=== PATIENT | female | born 1985 | race Caucasian/White ===

== ENCOUNTER 2020-02-20 11:09 | Emergency (ER) | payer OTHER ==
--- NOTE | 2020-02-20 12:38 | ED Physician Documentation ---
History of Present Illness - Stated complaint Stated Complaint: FEMALE /EAR RASH - Chief complaint Chief Complaint: General - History obtained from History obtained from: Patient (The pt is Out visiting her , she is from [place]. She has been here since last Wednesday, when she developed vaginal yeast infection. She called her PCP who prescribed her Diflucan p.o., she took 1 pill symptoms resolved. 3 days later her symptoms returned along with a rash and both her ears and the nape of her neck. Patient states she has had no change in the lotions creams or ointments or conditioner hair products. She has tried some basic non-perfumed ointment/facial cream to the rash which has not improved. Patient denies any fevers chills nausea vomiting diarrhea sore throat she does have 2 pills of Diflucan left no other concerns today) Review of Systems Constitutional: denies: Fever, Chills, Fatigue, Sweats Ears: denies: Loss of hearing, Ear pain, Drainage/discharge Nose: denies: Rhinorrhea / runny nose, Congestion, Sinus pressure / pain Throat: denies: Oral lesions / sores, Sore throat, Swollen tonsils Respiratory: denies: Dyspnea, Cough, Wheezing GI: denies: Nausea, Vomiting, Diarrhea : reports: Other (vaginal itching). denies: Dysuria, Frequency, Discharge Skin: reports: Rash. denies: Bite / sting Musculoskeletal: denies: Joint swelling Neurologic: denies: Headache PD PAST MEDICAL HISTORY - Past Medical History Past Medical History: No - Past Surgical History Past Surgical History: No - Present Medications Home Medications: Ambulatory Orders Medication Instructions Recorded Confirmed No Known Home Medications 02/20/20 02/20/20 - Allergies Allergies/Adverse Reactions: Allergies Allergy/AdvReac Type Severity Reaction Status Date / Time No Known Drug Allergies Allergy Verified 02/20/20 11:29 - Social History Does the pt smoke?: No Smoking Status: Never smoker Does the pt drink ETOH?: No Does the pt have substance abuse?: No - Immunizations Immunizations are current?: Yes PD ED PE NORMAL - General General: Alert and oriented X 3 - HEENT HEENT: Atraumatic, PERRL, EOMI, Ears normal, Pharynx benign - Neck Neck: No adenopathy - Cardiac Cardiac: RRR, No murmur - Respiratory Respiratory: No respiratory distress, Clear bilaterally - Female Female : Pt declined - Derm Derm: Other (Erythematous, angry appearing, pustular rash behind bilateral ears, right greater than left. Very faint pustules nonerythematous across the upper chest.) - Neuro Neuro: Alert and oriented X 3 - Psych Psych: Normal mood, Normal affect PD ED PE EXPANDED - Derm Derm: Rash (Behind bilateral ears right greater than left, to the nape of the neck, upper chest.), Papules Results - Vitals Vitals: Vital Signs - 24 hr 02/20/20 11:16 Temperature 37 C Heart Rate 88 Respiratory 20 Rate Blood Pressure 110/74 O2 Saturation 98 Oxygen O2 Source Room air PD MEDICAL DECISION MAKING - ED course Complexity details: re-evaluated patient, d/w patient, d/w credit consultant (Dr. Montes Evaluated the patient as well.) Departure - Departure Disposition: 01 Home, Self Care Clinical Impression: Contact dermatitis Qualifiers: Contact dermatitis type: unspecified Contact dermatitis trigger: unspecified trigger Qualified Code(s): L25.9 - Unspecified contact dermatitis, unspecified cause Condition: Good Instructions: ED Dermatitis Contact Ch Comments: Most likely a contact dermatitis behind her ears on her chest. Get some wwzk-lef-kdouhli cortisone cream, Hydrocortisone 1.0% and apply as directed to the affected area two to four times a day. Also fill your Diflucan prescription remaining 2 pills, take 1 pill daily received a prescription, then take a second pill 3 days later. Follow-up with your PCP no more than 1 week for your rash, or sooner if it fails to improve.
[2020-02-20 12:54] VITALS: BP 109/80
== END 2020-02-20 12:53 | disposition home or self-care (01) ==
LOC: ED 11:09
DX: L25.9 Unspecified contact dermatitis, unspecified cause (principal)
CPT/HCPCS: 99281; 99283

== ENCOUNTER 2020-04-24 15:35 | Outpatient (CLI) | payer OTHER | END 2020-04-24 15:36 | disposition EMS.NT | LOC: EMS 15:35 | PROVIDERS: ATTEND Surgery | DX: R07.89 Other chest pain (principal); V49.40XA Driver injured in collision with unspecified motor vehicles in traffic accident, initial encounter; Y92.414 Local residential or business street as the place of occurrence of the external cause ==

== ENCOUNTER 2020-04-24 17:56 | Emergency (ER) | payer OTHER ==
[2020-04-24] MEDS ORDERED: ONDANSETRON ODT 4 MG TABLET TL STA (18:27)
[2020-04-24] MEDS ORDERED: HYDROcod/ACETAM 5/325 MG TABLET PO STA (18:27)
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
--- NOTE | 2020-04-24 19:06 | CT Report ---
PROCEDURE: HEAD WO INDICATIONS: head injury. TECHNIQUE: Noncontrast 4.5 mm thick angled axial sections acquired from the foramen magnum to the vertex. For r adiation dose reduction, the following was used: automated exposure control, adjustment of mA and/or kV according to patient size. COMPARISON: None. FINDINGS: Image quality: Excellent. CSF spaces: Basal cisterns are patent. No extra-axial fluid collections. Ventricles are normal in size and shape. Brain: No midline shift. No intracranial masses or hemorrhage. Doherty-white matter interface is norm al. Skull and face: Calvarium and visualized facial bones are intact, without suspicious lesions. Sinuses: Visualized sinuses and mastoids are clear. IMPRESSION: No acute intracranial disease process. Reviewed by: Cherise Galeano MD, PhD on 04/24/2020 7:05 PM PDT Approved by: Cherise Galeano MD, PhD on 04/24/2020 7:05 PM PDT Station ID: [id number]
[2020-04-24 19:19] VITALS: BP 130/80
== END 2020-04-24 19:19 | disposition home or self-care (01) ==
LOC: ED 17:56
DX: S06.0X0A Concussion without loss of consciousness, initial encounter (principal); M25.512 Pain in left shoulder; V43.52XA Car driver injured in collision with other type car in traffic accident, initial encounter; W22.11XA Striking against or struck by driver side automobile airbag, initial encounter; Y92.410 Unspecified street and highway as the place of occurrence of the external cause
CPT/HCPCS: 70450; 99284; A9270; Q0162

== ENCOUNTER 2020-04-29 19:24 | Emergency (ER) | payer OTHER ==
[2020-04-29] MEDS ORDERED: INDOMETHACIN 25 MG CAPSULE PO STA (19:47)
[2020-04-29] MEDS ORDERED: MECLIZINE 12.5 MG TABLET PO STA (19:48)
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
--- NOTE | 2020-04-29 20:19 | CT Report ---
PROCEDURE: HEAD WO INDICATIONS: post concussive sx TECHNIQUE: Noncontrast 4.5 mm thick angled axial sections acquired from the foramen magnum to the vertex. For r adiation dose reduction, the following was used: automated exposure control, adjustment of mA and/or kV according to patient size. COMPARISON: CT head 04/24/2020. FINDINGS: Image quality: Excellent. CSF spaces: Basal cisterns are patent. No extra-axial fluid collections. Ventricles are normal in size and shape. Brain: No midline shift. No intracranial masses or hemorrhage. Doherty-white matter interface is norm al. Skull and face: Calvarium and visualized facial bones are intact, without suspicious lesions. Sinuses: Visualized sinuses and mastoids are clear. IMPRESSION: 1. No acute intracranial process. Reviewed by: Joyce Bar MD on 04/29/2020 8:17 PM PDT Approved by: Joyce Bar MD on 04/29/2020 8:17 PM PDT Station ID: [id number]
[2020-04-29] MEDS ORDERED: ONDANSETRON ODT 4 MG TABLET TL STA (20:40)
[2020-04-29 20:50] VITALS: BP 112/65
== END 2020-04-29 20:51 | disposition home or self-care (01) ==
LOC: ED 19:24
DX: G44.309 Post-traumatic headache, unspecified, not intractable (principal); F07.81 Postconcussional syndrome
CPT/HCPCS: 70450; 99284; A9270; Q0162

== ENCOUNTER 2020-08-02 06:49 | Emergency (ER) | payer OTHER ==
[2020-08-02 08:06] LABS: BASOPHILS # (AUTO) 0.1 10^3/uL (0.0-0.1); BASOPHILS % (AUTO) 0.9 %; EOSINOPHILS # (AUTO) 0.2 10^3/uL (0.0-0.7); EOSINOPHILS % (AUTO) 1.9 %; HGB - HEMOGLOBIN 14.1 g/dL (12.0-16.0); LYMPHOCYTES # (AUTO) 2.5 10^3/uL (1.5-3.5); LYMPHOCYTES % (AUTO) 26.1 %; MEAN CORPUSCULAR HEMOGLOBIN 29.7 pg (27.0-31.0); MEAN CORPUSCULAR HGB CONC 33.3 g/dL (32.0-36.0); MEAN CORPUSCULAR VOLUME 89.5 fL (81.0-99.0); MEAN PLATELET VOLUME 11.4 fL (7.9-10.8); MONOCYTES # (AUTO) 0.7 10^3/uL (0.0-1.0); MONOCYTES % (AUTO) 7.2 %; NEUTROPHILS % (AUTO) 63.5 %; PLT - PLATELET COUNT 205 10^3/uL (130-450); RED BLOOD COUNT 4.74 10^6/uL (4.20-5.40); RED CELL DISTRIBUTION WIDTH 13.1 % (12.0-15.0); WHITE BLOOD COUNT 9.5 x10^3/uL (4.8-10.8)
[2020-08-02 08:15] LABS: BILIRUBIN,URINE NEGATIVE (NEGATIVE); GLUCOSE, URINE (UA) NEGATIVE (NEGATIVE); KETONES,URINE (UA) NEGATIVE (NEGATIVE); LEUKOCYTE ESTERASE, URINE NEGATIVE (NEGATIVE); NITRITE,URINE NEGATIVE (NEGATIVE); OCCULT BLOOD,URINE MODERATE (NEGATIVE); PH,URINE 6.5 PH (5.0-7.5); PROTEIN,URINE NEGATIVE (NEGATIVE); UROBILINOGEN,URINE 0.2 (NORMAL) E.U./dL (NORMAL)
[2020-08-02 08:18] LABS: CLARITY,URINE CLEAR (CLEAR); HCG UR QUAL NEGATIVE
[2020-08-02 08:18] LABS: ALBUMIN 4.3 g/dL (3.2-5.5); ALBUMIN/GLOBULIN RATIO 1.3 (1.0-2.2); BILIRUBIN,TOTAL 0.7 mg/dL (0.2-1.0); CREATININE 0.8 mg/dL (0.4-1.0); TOTAL PROTEIN 7.7 g/dL (6.7-8.2)
[2020-08-02 08:27] LABS: RBC,URINE 0-5 /HPF (0-5); SQUAMOUS EPITHELIAL CELL,UR RARE Squamous (<= Few)
[2020-08-02 08:28] LABS: BACTERIA,URINE Few /HPF (None Seen)
[2020-08-02 08:40] LABS: PLATELET ESTIMATE, MANUAL NORMAL (130-450,000) (NORMAL); PLATELET MORPHOLOGY NORMAL APPEARANCE (NORMAL); RBC MORPHOLOGY (MULTIPLE) 1+ ANISOCYTOSIS (NORMAL)
[2020-08-02] MEDS ORDERED: HYDROmorphone 1 MG/ML CARPUJECT IM STA (09:23)
[2020-08-02] MEDS ORDERED: ONDANSETRON ODT 4 MG TABLET TL STA (09:23)
--- NOTE | 2020-08-02 10:49 | Ultrasound Report ---
PROCEDURE: Pelvic w/Transvaginal INDICATIONS: LLQ PAIN, H/O OV CYSTS TECHNIQUE: Real-time scanning was performed of the pelvic organs, with image documentation. Additional endovagi nal scanning was necessary due to incomplete visualization of the adnexal and endometrial structures by transabdominal scanning. COMPARISON: Previous ultrasound from outside hospital not available for review at time of this exam. FINDINGS: Transabdominal scanning: Limited scanning through the kidneys shows no hydronephrosis. No pathologi c free abdominal or pelvic fluid. Endovaginal scanning: Uterus: Uterus is surgically absent. Ovaries: Status post right oophorectomy. The left ovary measures 4.2 x 2.1 x 3.4 cm. Multiple follic les are seen on the left numbering less than 12. There is a likely involuting/collapsing cyst or foll icle measuring 1.8 cm in maximum dimension. No suspicious solid ovarian/adnexal mass lesions. IMPRESSION: Status post hysterectomy and right oophorectomy. Otherwise, no acute sonographic abnormalities identi fied in the pelvis. Unremarkable sonographic appearance of the left ovary. Preliminary findings were reported to Dr. Montes of the emergency department at 1025 hrs by the son jose. Reviewed by: Pranay Fletcher MD on 08/02/2020 10:48 AM PDT Approved by: Pranay Fletcher MD on 08/02/2020 10:48 AM PDT Station ID: [id number]
[2020-08-02 11:46] VITALS: BP 115/79
--- NOTE | 2020-08-02 11:54 | ED Physician Documentation ---
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 - Past Surgical History Past Surgical History: No /SMOKING PIPE REPAIRER: Other - Present Medications Home Medications: Ambulatory Orders Medication Instructions Recorded Confirmed Docusate Sodium 250Mg Capsule 250 mg PO BID #60 capsule 04/24/20 [Colace 250Mg Capsule] Hydrocodone/Acetaminophen 1 - 2 each PO Q6H PRN #14 tablet 04/24/20 [Hydrocodon-Acetaminophen 5-325] Ondansetron Odt [Zofran] 4 mg TL Q6H PRN #10 tablet 04/24/20 Indomethacin [Indocin] 25 mg PO BIDWM PRN #20 capsule 04/29/20 Meclizine HCl 25 mg PO Q6H PRN #15 tab.chew 04/29/20 Ondansetron Odt [Zofran] 4 mg TL Q6H PRN #10 tablet 04/29/20 Hydrocodone/Acetaminophen 1 each PO Q6HR PRN #6 tablet 08/02/20 [Hydrocodon-Acetaminoph 7.5-325] Ondansetron Odt [Zofran] 4 mg TL Q6H PRN #10 tablet 08/02/20 - Allergies Allergies/Adverse Reactions: Allergies Allergy/AdvReac Type Severity Reaction Status Date / Time No Known Drug Allergies Allergy Verified 08/02/20 06:58 - Social History Does the pt smoke?: No Smoking Status: Never smoker Does the pt drink ETOH?: No Does the pt have substance abuse?: No Substance Use and Type: Marijuana - Immunizations Immunizations are current?: Yes PD ED PE NORMAL - Vitals Vital signs reviewed: Yes (Hypertensive mild) - General General: Alert and oriented X 3, No acute distress, Well developed/nourished - HEENT HEENT: Atraumatic, PERRL, EOMI - Cardiac Cardiac: RRR, No murmur - Respiratory Respiratory: No respiratory distress, Clear bilaterally - Abdomen Abdomen: Normal bowel sounds, Soft, Non distended, No organomegaly, Other (Mild left lower quadrant tenderness.) - Back Back: No CVA TTP, No spinal TTP - Derm Derm: Normal color, Warm and dry, No rash - Extremities Extremities: No deformity, No edema - Neuro Neuro: Alert and oriented X 3, seam stay stitcher 2-12 intact, No motor deficit, No sensory deficit, Normal speech Eye Opening: Spontaneous Motor: Obeys Commands Verbal: Oriented GCS Score: 15 - Psych Psych: Normal mood, Normal affect Results - Vitals Vitals: Vital Signs - 24 hr 08/02/20 08/02/20 08/02/20 06:56 06:58 09:12 Temperature 36.7 C 36.9 C Heart Rate 88 85 96 Respiratory 17 16 16 Rate Blood Pressure 126/83 H 132/65 H 145/92 H O2 Saturation 98 98 100 08/02/20 08/02/20 10:36 11:44 Temperature 36.7 C Heart Rate 85 62 Respiratory 16 16 Rate Blood Pressure 127/71 115/79 O2 Saturation 99 99 Oxygen O2 Source Room air - Labs Labs: Laboratory Tests 08/02/20 08/02/20 08/02/20 07:59 07:59 08:10 WBC 9.5 RBC 4.74 Hgb 14.1 Hct 42.4 MCV 89.5 MCH 29.7 MCHC 33.3 RDW 13.1 Plt Count 205 MPV 11.4 H Neut # (Auto) 6.0 Lymph # (Auto) 2.5 Pine # (Auto) 0.7 Eos # (Auto) 0.2 Baso # (Auto) 0.1 Absolute Nucleated RBC 0.00 Nucleated RBC % 0.0 Manual Slide Review Indicated WBC Morphology NORMAL APPEARANCE Platelet Estimate NORMAL (130-450,000) Platelet Morphology NORMAL APPEARANCE RBC Morph Micro Appear 1+ ANISOCYTOSIS Sodium 140 Potassium 3.8 Chloride 107 Carbon Dioxide 24 Anion Gap 9.0 BUN 10 Creatinine 0.8 Estimated GFR (MDRD) 83 L Glucose 130 H Calcium 9.0 Total Bilirubin 0.7 AST 16 ALT 15 Alkaline Phosphatase 50 Total Protein 7.7 Albumin 4.3 Globulin 3.4 Albumin/Globulin Ratio 1.3 Lipase 28 Urine Color STRAW Urine Clarity CLEAR Urine pH 6.5 Ur Specific [place] <=1.005 Urine Protein NEGATIVE Urine Glucose (UA) NEGATIVE Urine Ketones NEGATIVE Urine Occult Blood MODERATE H Urine Nitrite NEGATIVE Urine Bilirubin NEGATIVE Urine Urobilinogen 0.2 (NORMAL) Ur Leukocyte Esterase NEGATIVE Urine RBC 0-5 Urine WBC 0-3 Ur Squamous Epith Cells RARE Squamous Urine Bacteria Few Ur Microscopic Review INDICATED Urine Culture Comments NOT INDICATED Urine HCG, Qual NEGATIVE - Rads (name of study) Pelvic ultrasound Radiology: Prelim report reviewed (Impression: Status post hysterectomy and right oophorectomy. Otherwise, no acute sonographic abnormalities identified in the pelvis. Unremarkable sonographic appearance of the left ovary.), EMP read indepedently, See rad report Procedures - Bedside sono Bedside sono by EMP: With use of bedside ultrasound the left kidney is imaged it is sonographically nontender and there is no evidence of hydronephrosis. PD MEDICAL DECISION MAKING - ED course Complexity details: reviewed results, re-evaluated patient, considered differential, d/w patient, d/w family ED course: 35-year-old female with a prior history of ovarian cyst is administered Dilaudid IM at her request and she does not appear to have any significant abnormality to the ovary on the left it does appear to be an involuting cyst and the expectation is rapid resolution of symptoms. Departure - Departure Disposition: 01 Home, Self Care Clinical Impression: Cyst of ovary Qualifiers: Laterality: left Qualified Code(s): N83.202 - Unspecified ovarian cyst, left side Condition: Stable Instructions: ED Cyst Ovarian Follow-Up: [facility] [Provider Group] Prescriptions: Hydrocodone/Acetaminophen [Hydrocodon-Acetaminoph 7.5-325] 1 each PO Q6HR PRN #6 tablet PRN Reason: Pain Ondansetron Odt [Zofran] 4 mg TL Q6H PRN #10 tablet PRN Reason: Nausea / Vomiting
== END 2020-08-02 12:07 | disposition home or self-care (01) ==
LOC: ED 06:49
DX: N83.202 Unspecified ovarian cyst, left side (principal)
CPT/HCPCS: 36415; 76830; 76856; 80053; 81001; 81025; 83690; 85025; 96372; 99284; J1170; Q0162; 81003; 87086

== ENCOUNTER 2020-08-26 10:45 | Outpatient (CLI) | payer OTHER ==
[2020-08-27 21:26] LABS: CANDIDA GROUP DNA NEGATIVE (NEGATIVE); CANDIDA KRUSEI DNA NEGATIVE (NEGATIVE); TRICHOMONAS VAGINALIS DNA NEGATIVE (NEGATIVE)
== END 2020-08-26 23:59 | disposition home or self-care (01) ==
LOC: LAB.R 10:45
PROVIDERS: ATTEND Obstetrics & Gynecology
DX: N89.8 Other specified noninflammatory disorders of vagina (principal); N39.0 Urinary tract infection, site not specified
CPT/HCPCS: 87086; 87661; 87801

== ENCOUNTER 2020-08-28 15:22 | Outpatient (CLI) | payer OTHER ==
--- NOTE | 2020-08-28 15:24 | XRAY Report ---
PROCEDURE: Cervical Spine 2 View INDICATIONS: CERVICAL RADICULOPATHY TECHNIQUE: 3 view(s) of the cervical spine were acquired. COMPARISON: None. FINDINGS: Bones: No fractures or dislocations to the C7-T1 level. The lateral masses of C1 appear intact on t he odontoid view. No suspicious bony lesions. There is straightening of normal cervical curvature. Minimal disc space narrowing is present at C6-7. No osteophytes. Soft tissues: No prevertebral soft tissue swelling. IMPRESSION: Minimal disc space narrowing at C6-7. Reviewed by: Joyce Bar MD on 08/28/2020 3:22 PM PDT Approved by: Joyce Bar MD on 08/28/2020 3:22 PM PDT Station ID: [id number]
== END 2020-08-28 23:59 | disposition home or self-care (01) ==
LOC: DI.WCP 15:22
PROVIDERS: ATTEND Family Medicine
DX: M54.12 Radiculopathy, cervical region (principal); M48.02 Spinal stenosis, cervical region
CPT/HCPCS: 72040

== ENCOUNTER 2020-08-30 17:34 | Outpatient (CLI) | payer OTHER | END 2020-08-30 23:59 | disposition home or self-care (01) | LOC: LAB.R 17:34 | PROVIDERS: ATTEND Physician Assistant | DX: R30.0 Dysuria (principal) | CPT/HCPCS: 87086 ==